=== PATIENT | male | born 1930 | race Caucasian/White ===

== ENCOUNTER 2016-12-14 13:55 | Emergency (ER) | payer MEDICARE ==
--- NOTE | ~2016-12-14 | ER ---
PATIENT'S NAME: VITALIY WILSON [facility] AGE: 86 Y [address] ROOM: [place] [address] LOCATION: ED ADMIT DATE: 12/14/2016 ER/Outpatient Report DISCHARGE DATE: 12/14/2016 FAMILY PHYSICIAN: Davie Medina MD ATTENDING PHYSICIAN: Graeme Middleton CHIEF COMPLAINT: No urination and bloody urine. HISTORY OF PRESENT ILLNESS: The patient is a resident at an assisted living facility. The family states that he was seen yesterday for possible UTI and was started on antibiotics. He had to be straight cathed to 2:00 a.m. He has not urinated since then. The family and facility state that he has otherwise been at his baseline. He does have advanced dementia and is otherwise functioning as he normally would. PAST MEDICAL HISTORY: Documented on the record and reviewed by me. SOCIAL HISTORY: Documented on the record and reviewed by me. MEDICATIONS: Documented on the record and reviewed by me. ALLERGIES: DOCUMENTED ON THE RECORD AND REVIEWED BY ME. REVIEW OF SYSTEMS: All systems reviewed and negative except as noted in the HPI. PHYSICAL EXAMINATION: VITAL SIGNS: Blood pressure 129/66, pulse 62, respiratory rate is 20, temperature is 98.0, SpO2 is 96% on room air. GENERAL: Age-appropriate male. No obvious pain or distress. Resting comfortably on the exam table. NEURO: The patient is awake, he is talking, he does not give appropriate responses, he does not follow commands. Moves all extremities appropriately. HEENT: Normocephalic, atraumatic. Eyes are PERRL. Oropharynx is clear. NECK: Supple. Trachea is midline. CHEST: Heart is regular rate and rhythm with no obvious murmurs. LUNGS: Grossly clear to auscultation bilateral. ABDOMEN: Soft with mild suprapubic tenderness. Otherwise, no masses, rebound, or guarding. BACK: Normal to inspection. PATIENT'S NAME: VITALIY WILSON [facility] AGE: 86 Y [address] ROOM: [place] [address] LOCATION: [facility] ADMIT DATE: 12/14/2016 ER/Outpatient Report DISCHARGE DATE: 12/14/2016 FAMILY PHYSICIAN: Davie Medina MD ATTENDING PHYSICIAN: Graeme Middleton : Normal male genitalia. No obvious skin breakdown. EXTREMITIES: Warm and well perfused. SKIN: Warm, dry, and intact. LABORATORY DATA AND X-RAYS: Bedside ultrasound reveals a distended bladder of approximately 400 mL. Urinalysis: 500 leukocytes, positive nitrites, packed field wbc's, many bacteria, full field rbc's, grossly red, urine procalcitonin low detectable threshold. CMS is notable for mild hypokalemia at 3.2, creatinine 1.2. GFR 57. No significant other abnormalities. CRP is 7.2, WBCs are 8.5, hemoglobin is 12.7, and platelets of 258. INR is 1. Lactate is 1.5. IMPRESSION: Urinary tract infection with urinary retention. EMERGENCY DEPARTMENT COURSE: The patient was seen and evaluated as above. Indwelling Natarajan was placed, during 370 mL, initially bloody malodorous urine per RN. The evaluation was as noted above. The patient has no evidence of sepsis at this time. He was given fluids and a dose of ciprofloxacin. He will be discharged back to the facility. Should he develop any further signs of sepsis such as fever, decline in mental status and in activity or there is change in the urine output, he should be re-evaluated. Encourage fluids. Continue Bactrim. Follow up with Dr. Medina on Friday or Friday. MD MARILIN CAMPUZANO/lenore /[id number] d: 12/15/16 1429 t: 01/01/17 0853, OUTPATIENT REPORT
[2016-12-14 14:37] LABS: BILIRUBIN URINE NEGATIVE (NEGATIVE); BLOOD URINE 250 /UL (NEGATIVE); COLOR URINE RED (YELLOW); GLUCOSE URINE 250 mg/dL (NEGATIVE); KETONE URINE 5 mg/dL (NEGATIVE); LEUKOCYTES URINE 500 /UL (NEGATIVE); NITRITE URINE POSITIVE (NEGATIVE); PROTEIN URINE 100 mg/dL (NEGATIVE); SPEC GRAVITY URINE 1.015 (1.003-1.035); TURBIDITY URINE 4+ (CLEAR); UROBILINOGEN URINE NORMAL (NORMAL)
[2016-12-14 14:45] LABS: EPITHELIAL URINE 0-2 #/HPF (NEGATIVE); WBC URINE PACKED FIELD #/HPF (NEGATIVE)
[2016-12-14 14:46] LABS: BACTERIA URINE MANY (NEGATIVE); RBC URINE FULL FIELD #/HPF (NEGATIVE)
[2016-12-14 14:55] LABS: BASOPHIL % 0.4 %; EOSINOPHIL # 0.2 K/uL (0.0-0.5); HEMATOCRIT 38.3 % (33.0-50.0); HEMOGLOBIN 12.7 g/dL (11.0-16.0); IMMATURE GRANULOCYTE # 0.1 K/uL (0.0-0.3); IMMATURE GRANULOCYTE % 0.7 %; LYMPHOCYTE # 1.2 K/uL (0.8-4.0); LYMPHOCYTE % 14.4 %; MCH 29.3 pg (27.0-34.0); MCHC 33.2 gm/dL (32.0-36.5); MCV 88.5 fl (83.0-98.0); MONOCYTE # 0.7 K/uL (0.0-1.0); MONOCYTE % 8.1 %; MPV 10.5 fl (9.4-12.4); NEUTROPHIL # (ANC) 6.3 K/uL (1.4-9.0); NEUTROPHIL % 74.4 %; NRBC % 0 /100WBC (0-0.00); PLATELET COUNT 258 K/uL (150-450); RBC 4.33 M/uL (3.50-5.50); RDW-CV 13.6 % (11.9-14.6); WBC 8.5 K/uL (4.0-11.0)
[2016-12-14 15:03] LABS: INR - (THERAPEUTIC) 1.01 (0.92-1.07); PROTIME 10.6 SECONDS (9.8-11.4); PTT 28 SECONDS (25-32)
[2016-12-14 15:12] LABS: ALBUMIN 3.3 gm/dL (3.5-5.0); ANION GAP 9.2 (10.0-19.0); CALCIUM 8.8 mg/dL (8.5-10.5); CREATININE 1.2 mg/dL (0.6-1.3); POTASSIUM 3.2 mMol/L (3.7-5.1); TOTAL BILIRUBIN 0.2 mg/dL (0.0-1.5); TOTAL PROTEIN 6.6 g/dL (6.0-8.4)
[2017-03-14] MEDS ORDERED: DULCOLAX10 MG R (19:16)
[2017-03-14] MEDS ORDERED: ASPIRIN LO-DOSE81 MG PO (19:16)
[2017-03-14] MEDS ORDERED: LISINOPRIL-HCT1 EAC2 PO (19:17)
[2017-03-14] MEDS ORDERED: MILK OF MA400 MG/5 M PO (19:18)
[2017-03-14] MEDS ORDERED: NAMENDA10 MG PO (19:18)
[2017-03-14] MEDS ORDERED: SEROQUEL25 MG PO ×2 (19:19→19:20)
[2017-03-14] MEDS ORDERED: HUMULIN 70100 UNIT/M SUB-Q (19:19)
[2017-03-14] MEDS ORDERED: ZOCOR40 MG PO (19:20)
[2017-03-14] MEDS ORDERED: TYLENOL325 MG PO (19:20)
[2017-03-14] MEDS ORDERED: ZOLOFT100 MG PO (19:21)
== END 2016-12-14 18:42 | disposition disaster alternative care site (69) ==
LOC: GMED 13:55
PROVIDERS: Emergency Medicine
PROC: 0TWB70Z Revision of Drainage Device in Bladder, Via Natural or Artificial Opening (ICD-10-PCS; principal; 2016-12-14)
DX: N39.0 Urinary tract infection, site not specified (principal); R33.9 Retention of urine, unspecified; Z88.0 Allergy status to penicillin; Z88.8 Allergy status to other drugs, medicaments and biological substances
CPT/HCPCS: J0744; J7030

== ENCOUNTER → 2016-12-14 | Outpatient (CLI) | payer MEDICARE, MEDICAID ==
[~2016-12-14] MED LIST: ASPIRIN LO-DOSE81 MG PO; DULCOLAX10 MG R; HUMULIN 70100 UNIT/M SUB-Q; LISINOPRIL-HCT1 EAC2 PO; MILK OF MA400 MG/5 M PO; NAMENDA10 MG PO; SEROQUEL25 MG PO; TYLENOL325 MG PO; ZOCOR40 MG PO; ZOLOFT100 MG PO
== END | disposition disaster alternative care site (69) ==
LOC: GAMB 13:36
DX: K92.9 Disease of digestive system, unspecified (principal); E11.9 Type 2 diabetes mellitus without complications; G30.9 Alzheimer's disease, unspecified; F02.81 Dementia in other diseases classified elsewhere, unspecified severity, with behavioral disturbance; I10 Essential (primary) hypertension; G20 Parkinson's disease; F32.9 Major depressive disorder, single episode, unspecified; R53.1 Weakness; R31.9 Hematuria, unspecified; R30.0 Dysuria; R33.9 Retention of urine, unspecified
CPT/HCPCS: A0425; A0429

== ENCOUNTER → 2017-03-14 | Day surgery (SDC) | payer MEDICARE ==
[~2017-03-14] VITALS: Ht 167.6 cm; Wt 73.8 kg
--- NOTE | ~2017-03-14 | ER ---
PATIENT'S NAME: VITALIY WILSON [facility] AGE: 86 Y [address] ROOM: [place] [address] LOCATION: [facility] [place] ADMIT DATE: 03/14/2017 ER/Outpatient Report DISCHARGE DATE: FAMILY PHYSICIAN: Davie Medina MD ATTENDING PHYSICIAN: FRANCIA PINEDA Admission date and time documented on the medical record. I saw the patient at 1815 hours. CHIEF COMPLAINT: Esophageal food bolus. HISTORY OF PRESENT ILLNESS: The patient is an 86-year-old male, who is a resident of [place]. Ate breakfast this morning, eggs and sausage toast, apparently got a food bolus around that time. He has been unable to control his secretions or swallow since that time. He was seen at [facility] and sent to the emergency room for further evaluation and possible endoscopy to remove the food bolus per Dr. Pineda. Dr. Pineda once tried glucagon IV prior to endoscopy. The patient has some discomfort in the epigastric area. No chest pain or shortness of breath. Unable to swallow. Does have some Alzheimer's dementia, but denies any headache; eyes, ears, nose, throat, neck, or spine pain. No incontinence. No joint or muscle swelling, redness, or pain. No skin eruptions. 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 Does have anxiety, depression. Does have some Alzheimer's dementia, Parkinson disease, frequent falls. HOME MEDICATIONS: See attached medication list. ALLERGIES: PENICILLIN, METFORMIN. SOCIAL HISTORY: Nonsmoker, nondrinker. SIGNIFICANT PAST MEDICAL HISTORY: Hypertension, Alzheimer's dementia, Parkinson disease, insulin-dependent diabetes mellitus type 2, frequent falls, orthostatic hypotension, bradycardia, depression, anxiety, foreign body in esophagus with removal by history, left hip fracture secondary to fall, dyslipidemia. OPERATIONS: Left hip hemiarthroplasty, upper endoscopy, appendectomy, tonsillectomy, cholecystectomy, bilateral inguinal herniorrhaphy. PATIENT'S NAME: VITALIY WILSON [facility] AGE: 86 Y [address] ROOM: [place] [address] LOCATION: [facility] [place] ADMIT DATE: 03/14/2017 ER/Outpatient Report DISCHARGE DATE: FAMILY PHYSICIAN: Davie Medina MD ATTENDING PHYSICIAN: FRANCIA PINEDA REVIEW OF SYSTEMS: All systems reviewed by me are negative with exception of those discussed in the history of the present illness. PHYSICAL EXAMINATION: VITAL SIGNS: Temperature 96.8, pulse 55 and regular, blood pressure 150/72. HEAD: Normocephalic. EYES, EARS, NOSE, THROAT: Clear. Mucous membranes moist. NECK: Negative. LUNGS: Clear. No rales, rhonchi, or wheezes. HEART: Regular. Pulses are palpable. Bradycardic. ABDOMEN: Soft, some mild tenderness to deep palpation in the epigastric area. No palpable masses. No distention. No organomegaly are palpable. No CVA tenderness. EXTREMITIES: Without peripheral edema, cyanosis, or deformity. NEUROVASCULAR: Intact. SKIN: Clear. No skin eruptions or rash. EMERGENCY ROOM COURSE: Did start an IV and normal saline fluids. Did give him 1 mg of glucagon IV here in the emergency room. 10 minutes later tried oral fluids that came right back up. At that point, discussed the patient with Dr. Pineda, promotion writer, who will take the patient back to endoscopy for food bolus removal. IMPRESSION: 1. Esophageal food bolus. 2. Hypertension. 3. Alzheimer's dementia. 4. Parkinson disease. 5. Insulin-dependent diabetes mellitus type 2. 6. Depression and anxiety. 7. Dyslipidemia. 8. Past history of esophageal food boluses removed by upper endoscopy. PLAN: The patient was taken back to endoscopy suite here in the emergency department. Dr. Pineda, a promotion writer will do upper endoscopy to remove esophageal food bolus. This information was relayed to the patient and his , and they understand and agree with treatment plan. PATIENT'S NAME: VITALIY WILSNO [facility] AGE: 86 Y [address] ROOM: [place], [place] [address] LOCATION: [facility] [place] ADMIT DATE: 03/14/2017 ER/Outpatient Report DISCHARGE DATE: FAMILY PHYSICIAN: Davie Medina MD ATTENDING PHYSICIAN: FRANCIA PINEDA MD SDS/modl /[id number] d: 03/14/17 2336 t: 03/15/17 1821, OUTPATIENT REPORT
== END | disposition disaster alternative care site (69) ==
LOC: GMED 18:04 → GSDC 19:21
PROC: 0DC58ZZ Extirpation of Matter from Esophagus, Via Natural or Artificial Opening Endoscopic (ICD-10-PCS; principal; 2017-03-14)
DX: T18.128A Food in esophagus causing other injury, initial encounter (principal); K44.9 Diaphragmatic hernia without obstruction or gangrene; G20 Parkinson's disease; G30.9 Alzheimer's disease, unspecified; E11.9 Type 2 diabetes mellitus without complications; I10 Essential (primary) hypertension; F32.9 Major depressive disorder, single episode, unspecified; F41.9 Anxiety disorder, unspecified; F02.80 Dementia in other diseases classified elsewhere, unspecified severity, without behavioral disturbance, psychotic disturbance, mood disturbance, and anxiety; Z88.0 Allergy status to penicillin; Z88.8 Allergy status to other drugs, medicaments and biological substances; X58.XXXA Exposure to other specified factors, initial encounter; Z90.49 Acquired absence of other specified parts of digestive tract; Z79.4 Long term (current) use of insulin; Z98.890 Other specified postprocedural states
CPT/HCPCS: J1610; J7030

== ENCOUNTER → 2017-04-15 | Outpatient (CLI) | payer MEDICARE, MEDICAID | DX: E78.5 Hyperlipidemia, unspecified (principal); E11.9 Type 2 diabetes mellitus without complications ==